=== PATIENT | male | born 1960 | race Caucasian/White ===

== ENCOUNTER 2023-11-28 23:06 | Inpatient (IN) | payer BC ==
[~2023-11-28] VITALS: Ht 172.7 cm; Wt 88.6 kg
[2023-11-28] MEDS ORDERED: LIPITOR20 MG PO (23:45)
[2023-11-28] MEDS ORDERED: METFORMIN XR500 MG PO (23:45)
[2023-11-29 02:51] LABS: BASO % 0.5 % (0.0-1.0); EOS # 0.3 10*3/uL (0.0-0.4); EOS % 4.3 % (1.0-4.0); LYMPH # 1.7 10*3/uL (1.3-4.4); LYMPH % 23.1 % (27.0-41.0); MEAN CELL VOLUME 91.1 fl (80.0-94.0); MEAN CORPUSCULAR HGB 30.5 pg (27.0-31.0); MEAN CORPUSCULAR HGB CONC 33.4 g/dl (33.0-37.0); MEAN PLATELET VOLUME 8.8 fl (9.6-12.3); MONO # 0.7 10*3/uL (0.1-1.0); MONO % 9.7 % (3.0-9.0); NEUT # 4.6 10*3/uL (2.3-7.9); PLATELET COUNT AUTOMATED 211 10*3/uL (130-400); RED BLOOD COUNT 3.84 10*6/uL (4.50-5.90); RED CELL DISTRI WIDTH 11.9 % (0-14.5); WHITE BLOOD COUNT 7.5 10*3/uL (4.8-10.8)
[2023-11-29 03:10] LABS: BUN 11 mg/dl (9-23); CHLORIDE 103 mmol/L (98-107); POTASSIUM 3.9 mmol/L (3.4-5.1)
[2023-11-29] MEDS ORDERED: Vancomycin Hydrochloride 250 ML IV ONE (04:00)
[2023-11-29] MEDS ORDERED: Piperacillin Sodium/Tazobact 50 ML IV ONE (04:00)
[2023-11-29] MEDS ORDERED: Ondansetron Hydrochloride 4 MG/2 ML VIAL IV PRN (05:55)
[2023-11-29] MEDS ORDERED: Acetaminophen/Hydrocodone 5 MG/325 MG TABLET PO PRN (05:55)
[2023-11-29] MEDS ORDERED: ACETAMINOPHEN 650 MG SUPP R PRN (05:55)
[2023-11-29] MEDS ORDERED: ACETAMINOPHEN 325 MG TAB PO PRN (05:55)
[2023-11-29] MEDS ORDERED: BISACODYL 5 MG TAB PO PRN (05:55)
[2023-11-29] MEDS ORDERED: Magnesium Hydroxide 30 ML UDC PO PRN (05:55)
[2023-11-29] MEDS ORDERED: BISACODYL 10 MG SUPP R PRN (05:55)
[2023-11-29] MEDS ORDERED: DEXTROSE 10 % IN WATER 250 ML IV PRN (06:05)
[2023-11-29] MEDS ORDERED: INSULIN LISPRO 1 UNIT/0.01 ML SQ SCH (07:30)
[2023-11-29 08:49] VITALS: BP 101/56
[2023-11-29 09:09] LABS: VITAMIN D, 25-HYDROXY 49.6 ng/mL (30-100)
[2023-11-29] MEDS ORDERED: Piperacillin Sodium/Tazobact 50 ML IV SCH (10:00)
[2023-11-29] MEDS ORDERED: Enoxaparin Sodium 40 MG/0.4 ML SYR SC SCH (10:00)
[2023-11-29] MEDS ORDERED: IOHEXOL 300 MG/ML 100 ML VIAL IV ONE (11:10)
[2023-11-29] MEDS ORDERED: Vancomycin Hydrochloride 1,000 MG in SODIUM CHLORIDE 0.9% 250 ML IV SCH (14:00)
[2023-11-29 23:36] VITALS: BP 124/65
[2023-11-30 04:00] VITALS: BP 110/68
[2023-11-30 05:56] LABS: BUN 6 mg/dl (9-23); CHLORIDE 104 mmol/L (98-107); POTASSIUM 3.7 mmol/L (3.4-5.1)
[2023-11-30 06:10] LABS: BASO % 0.5 % (0.0-1.0); EOS # 0.3 10*3/uL (0.0-0.4); EOS % 4.1 % (1.0-4.0); HEMATOCRIT 33.1 % (42.0-52.0); LYMPH # 1.4 10*3/uL (1.3-4.4); MEAN CELL VOLUME 91.2 fl (80.0-94.0); MEAN CORPUSCULAR HGB 31.4 pg (27.0-31.0); MEAN CORPUSCULAR HGB CONC 34.4 g/dl (33.0-37.0); MEAN PLATELET VOLUME 9.5 fl (9.6-12.3); MONO # 0.8 10*3/uL (0.1-1.0); MONO % 9.7 % (3.0-9.0); NEUT # 5.3 10*3/uL (2.3-7.9); NEUT % 67.6 % (47.0-73.0); PLATELET COUNT AUTOMATED 202 10*3/uL (130-400); RED BLOOD COUNT 3.63 10*6/uL (4.50-5.90); RED CELL DISTRI WIDTH 11.6 % (0-14.5); WHITE BLOOD COUNT 7.8 10*3/uL (4.8-10.8)
[2023-11-30 06:34] VITALS: BP 129/56
[2023-11-30] MEDS ORDERED: ATORVASTATIN CALCIUM 20 MG TAB PO SCH (10:00)
[2023-11-30 10:46] VITALS: BP 120/65
[2023-11-30 12:24] VITALS: BP 128/71
[2023-11-30] MEDS ORDERED: LIPITOR40 MG PO (14:07)
[2023-11-30] MEDS ORDERED: CEPHALEXIN500 M1 PO (14:08)
[2023-11-30 16:00] VITALS: BP 110/68
[2023-11-30 20:00] VITALS: BP 138/67
[2023-12-01] VITALS: BP 109/54
[2023-12-01 04:25] LABS: BUN 6 mg/dl (9-23); CHLORIDE 105 mmol/L (98-107); POTASSIUM 3.9 mmol/L (3.4-5.1)
[2023-12-01 08:00] VITALS: BP 141/74
[2023-12-01 12:00] VITALS: BP 104/45
[2023-12-01 16:00] VITALS: BP 132/74
[2023-12-01 20:00] VITALS: BP 134/72
[2023-12-02] VITALS: BP 105/62; BP 128/73
[2023-12-02 06:04] LABS: BUN 7 mg/dl (9-23); CHLORIDE 106 mmol/L (98-107); POTASSIUM 3.8 mmol/L (3.4-5.1)
[2023-12-02 06:11] LABS: BASO # 0.1 10*3/uL (0.0-0.1); BASO % 1.2 % (0.0-1.0); EOS # 0.4 10*3/uL (0.0-0.4); EOS % 7.1 % (1.0-4.0); HEMATOCRIT 32.6 % (42.0-52.0); LYMPH # 1.5 10*3/uL (1.3-4.4); LYMPH % 25.2 % (27.0-41.0); MEAN CELL VOLUME 93.1 fl (80.0-94.0); MEAN CORPUSCULAR HGB 30.3 pg (27.0-31.0); MEAN CORPUSCULAR HGB CONC 32.5 g/dl (33.0-37.0); MEAN PLATELET VOLUME 9.4 fl (9.6-12.3); MONO # 0.6 10*3/uL (0.1-1.0); MONO % 9.4 % (3.0-9.0); NEUT # 3.5 10*3/uL (2.3-7.9); NEUT % 56.9 % (47.0-73.0); PLATELET COUNT AUTOMATED 218 10*3/uL (130-400); RED CELL DISTRI WIDTH 11.8 % (0-14.5); WHITE BLOOD COUNT 6.1 10*3/uL (4.8-10.8)
[2023-12-02 07:59] VITALS: BP 124/82
[2023-12-02] MEDS ORDERED: SEPTDS PO (11:56)
[2023-12-02 12:00] VITALS: BP 137/70
== END 2023-12-02 15:09 | disposition home or self-care (01) | DRG 603 ==
LOC: ED 23:06 → EDHOLD 11-29 05:27 → 4E 11-29 05:27
PROVIDERS: Emergency Medicine; Student in an Organized Health Care Education/Training Program; ADMIT Student in an Organized Health Care Education/Training Program; ATTEND Student in an Organized Health Care Education/Training Program
PROC: 0X9C0ZZ Drainage of Left Elbow Region, Open Approach (ICD-10-PCS; principal; 2023-11-29)
DX: L03.114 Cellulitis of left upper limb (principal); L02.414 Cutaneous abscess of left upper limb; D64.9 Anemia, unspecified; E78.5 Hyperlipidemia, unspecified; E11.65 Type 2 diabetes mellitus with hyperglycemia; Z79.899 Other long term (current) drug therapy; Z79.01 Long term (current) use of anticoagulants; Z79.2 Long term (current) use of antibiotics; Z88.8 Allergy status to other drugs, medicaments and biological substances; Z91.018 Allergy to other foods; Z91.09 Other allergy status, other than to drugs and biological substances; W18.39XA Other fall on same level, initial encounter; Y93.89 Activity, other specified; Y92.89 Other specified places as the place of occurrence of the external cause; Y99.8 Other external cause status